=== PATIENT | female | born 1965 | race Caucasian/White ===

== ENCOUNTER 2023-04-06 19:39 | Emergency (ER) | payer BC ==
[2023-04-06] MEDS ORDERED: Sodium Chloride 0.9% 10 ML Syringe FLUSH PRN (20:27)
[2023-04-06] MEDS ORDERED: Sodium Chloride 0.9% 1,000 ML IV SCH (20:30)
[2023-04-06 20:46] LABS: ANION GAP 11.5 mmol/L (5.0-15.0); BUN/CREATININE RATIO 19.4 (6-25); CALCIUM 8.8 mg/dL (8.5-10.1); CARBON DIOXIDE,CO2 25.8 mmol/L (21.0-32.0); CREATININE 0.72 mg/dL (0.55-1.02); EST CRCL DRUG DOSING (CG) 96.35 mL/min; PHOSPHORUS 4.3 mg/dL (2.5-4.9); POTASSIUM,K 4.3 mmol/L (3.5-5.1); TROPONIN I HIGH SENSITIVITY 4.8 pg/ml (<=60.4)
== END 2023-04-06 22:30 | disposition home or self-care (01) ==
LOC: LB.ED 19:39
DX: E86.0 Dehydration (principal); F17.210 Nicotine dependence, cigarettes, uncomplicated
CPT/HCPCS: 36415; 80048; 83735; 84100; 84484; 85379; 93005; 96360; 99285; J7030